=== PATIENT | female | born 1965 ===

== ENCOUNTER 2017-11-09 12:51 | Emergency (ER) | payer OTHER ==
--- NOTE | 2017-11-09 14:03 | UC ---
Skin Complaint HPI - HPI Summary HPI Summary: 52 y/o female presents to the urgent care c/o a rash w/ mild swelling, redness and itchiness under left eye and lateral side of her nose for the past 2 days. Pt is not sure if it was an insect bite or that she had a crown dental work last October 22. Pt states mild pain at touch, specially on the lateral side of the nose. Pain is 2/10. Pt denies fever, AYOUB, eye pain or eye discharge, SOB , chest pain, abdominal pain, N/V/D. Pt has applied OTC topical cream to alleviate itchiness. - History of Current Complaint Chief Complaint: UCRash Time Seen by Provider: 11/09/17 13:42 Stated Complaint: SKIN COMPLAINT Hx Obtained From: Patient Hx Last Menstrual Period: na ?: No - pt is menopausal Onset/Duration: Gradual Onset, Lasting Days - 2 days, Still Present Skin Exposure Onset/Duration: Days Ago - 2 days Onset Severity: Mild Current Severity: Moderate Pain Intensity: 3 Pain Scale Used: 0-10 Numeric Location: Nose - left side of nose and left cheek Character: Swelling, Pruritus, Pain, Redness Aggravating Factor(s): Touch Alleviating Factor(s): OTC Creams/Salves Associated Signs & Symptoms: Positive: Rash, Tenderness. Negative: Fever, Chills Related History: Possible Reaction to: Insect - Allergy/Home Medications Allergies/Adverse Reactions: Allergies Allergy/AdvReac Type Severity Reaction Status Date / Time No Known Allergies Allergy Verified 11/09/17 13:41 Review of Systems Constitutional: Negative Skin: Rash - left cheek and lefst side of nose w/ itchiness Eyes: Negative ENT: Negative Respiratory: Negative Cardiovascular: Negative Gastrointestinal: Negative Genitourinary: Negative Motor: Negative Neurovascular: Negative Musculoskeletal: Negative Neurological: Negative Psychological: Negative Is Patient Immunocompromised?: No All Other Systems Reviewed And Are Negative: Yes PMH/Surg Hx/FS Hx/Imm Hx Previously Healthy: Yes Cancer History: Colorectal Cancer - resolved s/p surgery in 01/2017 - Surgical History Surgical History: Yes Surgery Procedure, Year, and Place: appendix. cyst on ovary. illiostomy/ reversal. chest wall port - removed. incontinence - Family History Known Family History: Positive: Cardiac Disease, Hypertension, Diabetes - Social History Occupation: Employed Full-time Lives: With Family Alcohol Use: Rare Substance Use Type: None Smoking Status (MU): Former Smoker Length of Time of Smoking/Using Tobacco: 20 years Household Exposure Type: Cigarettes Physical Exam - Summary Physical Exam Summary: Vital Signs Reviewed: Yes General: well developed, well nourished female sitting in the examining table w/ o any apparent distress. Eyes: Positive: Conjunctiva Clear - PERRLA, EOMI intact w/out limitation or complaint of pain. eyelashes clear. no eye drainage observed. No ciliary flush. No chemosis, No photophobia. Normal fundoscopic exam; no proptosis, exophthalmos , nystagmus. ENT: Positive: Normal ENT inspection, Hearing grossly normal, Pharynx normal, TMs normal Neck: Positive: Supple, Nontender, No Lymphadenopathy Respiratory: Positive: Chest nontender, Lungs clear, Normal breath sounds Cardiovascular: Positive: RRR, No Murmur, Pulses Normal Abdomen Description: Positive: Nontender, No Organomegaly, Soft. Negative: CVA Tenderness (R), CVA Tenderness (L) Bowel Sounds: Positive: Present Musculoskeletal: Positive: Strength Intact, ROM Intact, No Edema Neurological Exam: Normal Psychological Exam: Normal Skin: Positive: rashes - left side of the nose at mid point w/ a mild erythematous induration and surrounding erythemaous eruption w/ indistinct borders spreading to the left cheek w/ mild swelling. Mild tenderness to palpation over the induration. No drainage observed. Triage Information Reviewed: Yes Vital Signs: Initial Vital Signs Temp 98.4 F 11/09/17 13:32 Pulse 76 11/09/17 13:32 Resp 18 11/09/17 13:32 BP 112/74 11/09/17 13:32 Pulse Ox 98 11/09/17 13:32 Course/Dx - Course Course Of Treatment: 52 y/o female presents to the urgent care c/o a rash w/ mild swelling, redness and itchiness under left eye and lateral side of her nose for the past 2 days. Pt is not sure if it was an insect bite or that she had a crown dental work last October 22. Pt states mild pain at touch, specially on the lateral side of the nose. Pain is 2/10. Pt denies fever, AYOUB, eye pain or eye discharge, SOB , chest pain, abdominal pain, N/V/D. Pt has applied OTC topical cream to alleviate itchiness.Hx obtained. Pt w/ probably a mild cellulitis s/p insect bite. Pt Rx Keflex PO, and Benadryl PO to alleviates pruritus. Pt advised if rash and swelling goes around the eye despite taking antibiotics to f/u w/ Opthalmologist DR Rincon or go to the ER for furthe managemnt. Pt understood and agreed w/ plan of care. - Differential Diagnoses - Skin Complaint Differential Diagnoses: Abscess, Cellulitis, Local Allergic Reaction, MRSA, Urticaria, Other - periorbital cellulitis, orbital cellulitis, insect bite - Diagnoses Provider Diagnoses: 1- left cheek cellulitis s/p insect bite. 2-pruritus Discharge - Sign-Out/Discharge Documenting (check all that apply): Discharge - Discharge Plan Condition: Stable Disposition: HOME Prescriptions: Cephalexin CAP* [Keflex CAP*] 500 mg PO QID #28 cap diPHENhydraMINE PO* [Benadryl PO 25 MG TAB*] 25 mg PO TID PRN #15 tab PRN Reason: puritus Patient Education Materials: Cellulitis (ED), Acute Rash (ED) Referrals: [facility] [place] PHYSICIAN REFERRAL [Outside] - 2 Days Link Rincon MD [Medical Doctor] - If Needed Additional Instructions: 1-Please take full course of Antibiotic to avoid any resistance 2- If redness and swelling doubles in size and develops around your left eye despite taking antibiotic and fever develops please go to the ER immediately or F/u w/ Stereoptician DR Rincon 3- Please Take Benadryl PO to alleviate itchiness. 4-Please F/u with your PCP in 2 days if not improvement for further evaluation and treatment. - Billing Disposition and Condition Condition: STABLE Disposition: HOME
== END 2017-11-09 14:14 | disposition home or self-care (01) ==
LOC: UCEAST 12:51
DX: L03.211 Cellulitis of face (principal); L29.9 Pruritus, unspecified; Z85.038 Personal history of other malignant neoplasm of large intestine; Z87.891 Personal history of nicotine dependence
CPT/HCPCS: 99202; G0463